=== PATIENT | female | born 1995 | race Caucasian/White ===

== ENCOUNTER 2017-11-26 11:00 | Emergency (ER) | payer MEDICAID, OTHER ==
--- NOTE | 2017-11-26 12:19 | EDM.PDOC ---
ED HPI GENERAL MEDICAL PROBLEM - General Chief Complaint: Lower Extremity Injury/Pain Stated Complaint: FELL AND LEFT FOOT IS IN PAIN Time Seen by Provider: 11/26/17 11:35 Source of Information: Reports: Patient, Family History Limitations: Reports: No Limitations - History of Present Illness INITIAL COMMENTS - FREE TEXT/NARRATIVE: 22-year-old female turned her left ankle while walking on ice this morning. She inverted the ankle and felt a pop and now has significant pain medial and lateral with swelling. Significant pain with weightbearing. No other injury. Onset: Sudden Duration: Hour(s): (Within the last couple hours) Location: Reports: Lower Extremity, Left Severity: Moderate Associated Symptoms: Reports: No Other Symptoms left ankle Pain Score (Numeric/FACES): 4 - Related Data Allergies Allergy/AdvReac Type Severity Reaction Status Date / Time No Known Allergies Allergy Verified 11/26/17 11:40 Home Meds: Home Meds Ethinyl Estradiol/Norgestrel [Cryselle 28-Day] 1 tab PO DAILY 11/26/17 [History] Past Medical History Musculoskeletal History: Reports: Fracture Social & Family History - Tobacco Use Smoking Status *Q: Never Smoker - Caffeine Use Caffeine Use: Reports: None - Recreational Drug Use Recreational Drug Use: No Review of Systems - Review of Systems Review Of Systems: See Below Respiratory: Reports: No Symptoms Cardiovascular: Reports: No Symptoms GI/Abdominal: Reports: No Symptoms Skin: Reports: No Symptoms. Denies: Bruising Neurological: Denies: Paresthesia ED EXAM, GENERAL - Physical Exam Exam: See Below Exam Limited By: No Limitations General Appearance: Alert, No Apparent Distress (Patient is uncomfortable but not distressed) Respiratory/Chest: No Respiratory Distress Extremities: Other (Exam is otherwise limited to the left lower extremity. Patient has significant tenderness to palpation of the distal fibula and tibia, with moderate soft tissue swelling especially laterally.) Skin Exam: Warm, Dry Course - Vital Signs Last Recorded V/S: Last Vital Signs Temp 98.8 F 11/26/17 11:44 Pulse 87 11/26/17 11:44 Resp 16 11/26/17 11:44 BP 134/71 11/26/17 11:44 Pulse Ox 96 11/26/17 11:44 - Orders/Labs/Meds Orders: Active Orders 24 hr Category Date Time Status Ankle Min 3V Lt [CR] Stat Exams 11/26/17 11:52 Ordered DME for Discharge [COMM] Stat Oth 11/26/17 12:14 Ordered - Re-Assessments/Exams Free Text/Narrative Re-Assessment/Exam: 11/26/17 12:16 Ankle x-ray was obtained, shows no fracture or disruption of the mortise. A three-inch Jonathan wrap was applied to the ankle and she was fitted for some crutches, encouraged to increase activity as tolerated. She can recheck with podiatry next week if not improving satisfactorily. Departure - Departure Time of Disposition: 12:29 Disposition: Home, Self-Care 01 Condition: Good Clinical Impression: Left ankle sprain Qualifiers: Encounter type: initial encounter Involved ligament of ankle: anterior talofibular ligament Qualified Code(s): S93.492A - Sprain of other ligament of left ankle, initial encounter - Discharge Information Instructions: Ankle Sprain, [id number] Referrals: Maikol Holloway MD [Primary Care Provider] - Forms: ED Department Discharge Care Plan Goals: Use crutches for the next several days, wrap the ankle for support and increase activity as tolerated. Recheck with podiatry next week if not improving satisfactorily, Dr. Ruffin is usually in the clinic on Friday and Friday. A regular dose of ibuprofen or naproxen should help. - My Orders Last 24 Hours: My Active Orders 11/26/17 11:52 Ankle Min 3V Lt [CR] Stat 11/26/17 12:14 DME for Discharge [COMM] Stat - Assessment/Plan Last 24 Hours: My Active Orders 11/26/17 11:52 Ankle Min 3V Lt [CR] Stat 11/26/17 12:14 DME for Discharge [COMM] Stat
--- NOTE | 2017-11-26 13:58 | CR ---
Ankle Min 3V Lt HISTORY: Injury COMPARISON: None FINDINGS: No fracture or dislocation. Mild lateral soft tissue swelling. No bony destructive process seen. .
== END 2017-11-26 12:29 | disposition home or self-care (01) ==
LOC: JP.ED 11:00
DX: S93.432A Sprain of tibiofibular ligament of left ankle, initial encounter (principal); X50.9XXA Other and unspecified overexertion or strenuous movements or postures, initial encounter; Y93.01 Activity, walking, marching and hiking; Z79.899 Other long term (current) drug therapy
CPT/HCPCS: 73610-26-LT; 73610-LT; 99284